=== PATIENT | male | born 1930 | race African-American/Black ===

== ENCOUNTER 2016-04-12 23:02 | Emergency (ER) | payer OTHER ==
[~2016-04-12] VITALS: Ht 167.6 cm; Wt 90.7 kg
--- NOTE | ~2016-04-12 | EKG ---
[place] [address] [facility] [employer] [place] [address] ELECTROCARDIOGRAM REPORT Name: TONY MANCIA Room #: IMELDA Tillman#: [id number] Admission: 04/12/16 Attend Phys: Discharge: 04/13/16 Date of : [birth year] Report #: [id number] THIS REPORT FOR: //name// [facility] ED Test Date: 2016-04-12 Test Time: 23:05:56 Pat Name: TONY MANCIA Department: Room: Gender: Dye Expert: Yemi POWELL : 1930 Requested By: Gisele Mcconnell Order Number: [id number] MD: Andres North Measurements Intervals [place] Rate: 77 P: 32 UT: 155 QRS: -8 QRSD: 83 T: 63 QT: 365 QTc: 414 Interpretive Statements Sinus rhythm No significant abnormality No previous ECG available for comparison Electronically Signed On 04-13-2016 14:29:54 [employer] by Andres North [email or web address] <ELECTRONICALLY SIGNED> By: Andres North MD, [facility] 04/13/16 1429 2305 2305 Andres North MD, FACC /EPI
[~2016-04-12 23:02] MED LIST: ACETAMINOPHEN325 M1 PO; AMLODIPINE BESYL5 MG PO; AVELOX ABC PAC400 MG PO; CHLORTHALIDONE25 MG PO; ENOXAPARIN100 MG/1 M SUBQ; JANTOVEN6 MG PO; NIFEDICAL XL30 MG PO; NORVASC10 MG PO; VICODIN 5-5001 EACH PO
[2016-04-13 00:54] LABS: HEMOGLOBIN 16.6 gm/dL (14.0-18.0); MCH 28.9 pg (26.0-34.0); MCHC 33.8 % (28.0-37.0); MCV 85.5 fL (80.0-100.0); PLATELET COUNT 268 thou/uL (150-400); RBC 5.73 mil/uL (4.50-6.00)
[2016-04-13 00:58] LABS: MANUAL DIFF YES
[2016-04-13 00:59] LABS: ANION GAP 10 mmol/L (7-16); BUN 37 mg/dL (7-18); CALCIUM 8.7 mg/dL (8.5-10.1); CHLORIDE 109 mmol/L (98-107); CO2 23 mmol/L (21-32); CREATININE 2.5 mg/dL (0.6-1.3); GLUCOSE 122 mg/dL (70-99); POTASSIUM 4.2 mmol/L (3.5-5.1); SODIUM 142 mmol/L (136-145)
[2016-04-13 01:00] LABS: APTT 37.8 Seconds (24.5-32.8); INR 3.2; PROTIME 33.5 Seconds (9.3-11.4)
[2016-04-13 01:13] LABS: NT-PRO BRAIN NAT PEPTIDE 135 pg/mL (<300); TROPONIN-I < 0.04 ng/mL (<0.04-0.07)
[2016-04-13 01:27] LABS: ABSOLUTE NEUTROPHILS 2.9 thou/uL (1.4-8.2); ATYPICAL LYMPHS 6 %; TOTAL CELL COUNT 100
[2016-04-13] MEDS ORDERED: ANTIVERT25 MG PO (01:43)
[2016-04-13 01:50] VITALS: BP 152/62
== END 2016-04-13 01:51 | disposition home or self-care (01) ==
LOC: ER 23:02
PROVIDERS: Emergency Medicine
DX: R42 Dizziness and giddiness (principal); I12.9 Hypertensive chronic kidney disease with stage 1 through stage 4 chronic kidney disease, or unspecified chronic kidney disease; N18.9 Chronic kidney disease, unspecified; Z86.711 Personal history of pulmonary embolism